=== PATIENT | male | born 1950 | race Caucasian/White ===

== ENCOUNTER → 2016-10-29 | Outpatient (CLI) | payer BC ==
[~2016-10-29] MED LIST: ALLEGRA180 MG PO; ALLOPURINOL 30300 M3 PO; APAP650 PO; ASPIRIN EC81 M1 PO; AZELAST NASAL137 MC1 NASAL; BISACODYL SUPP10 MG RECTAL; BYSTOLIC10 MG PO; CHLORTHALIDONE25 MG PO; COLACE 100 MG100 MG PO; DIPHENHYDRAMINE25 M3 PO; ELIQUIS5 MG PO; ETODOLAC500 MG PO; FLONASE 0.05%50 MCG NASAL; HYDROXYZINE HCL25 M1 PO; LESCOL XL80 MG PO; LODINE 200MG C200 M1 PO; LORTAB 7.5/5001 TA3 PO; METOCLOPRAMIDE 55 M1 PO; MOM PO; NASONEX17 GM NASAL; NASONEX17 GM NS; POTASSIUM99 M1 PO; PRILOSEC 20 MG20 MG PO; PRILOSEC20 MG PO; TEKTURNA300 MG PO; VERAPAMIL E.R240 M1 PO; VIIBRYD40 MG PO; XANAX 0.5 MG0.5 M1 PO; ZETIA10 MG PO
--- NOTE | ~2016-10-29 | 24HR ---
[address] [address] 24 HR ELECTROCARDIOGRAM REPORT Name: BRENTON MUNOZ Room #: REG [facility]#: [id number] Admission: 10/29/16 Attend Phys: Gautam Mills, Discharge: Date of : 52 Date of Service: 10/29/161126 Report #: [id number] THIS REPORT FOR: //name// [facility] Test Date: 2016-10-29 Test Time: 11:27:00 Pat Name: BRENTON MUNOZ Department: Room: Gender: Component Technician: : 1950 Requested By: Gautam Mills Order Number: [id number] Parviz SALAS: Interpretive Statements [email or web address] By: 26 26 Epiphany MD Geo /EPI
== END ==
LOC: CV 09:41
DX: I48.91 Unspecified atrial fibrillation (principal)

== ENCOUNTER → 2017-01-07 | Outpatient (CLI) | payer BC ==
[~2017-01-07] VITALS: Ht 165.1 cm; Wt 89.4 kg
[~2017-01-07] MED LIST changes: +BYSTOLIC 5 MG5 M1 PO; +FLOMAX0.4 MG PO; +TRAMADOL 50 MG50 MG PO
--- NOTE | ~2017-01-07 | HPC ---
[facility] [place] [address] PAIN MANAGEMENT CONSULTATION Name: BRENTON MUNOZ JAMAL STORY [facility] [id number] Admission: 01/07/17 Attend Phys: Patrick Cordero DO Discharge: Date of : 52 Report #: [id number] THIS REPORT FOR: //name// CC: Lenin Cordero The patient is a 66-year-old gentleman seen about a year and a half ago for symptomatic lumbar radiculopathy, was treated in April 2015, had an epidural injection then and again 06/06/2015 and 07/07/2015, with excellent improvement of radicular symptoms, somewhat lost to follow up. He presents to pain clinic today for a new complaint. He notes he has had pain in the neck, right shoulder and arm, which has been present for greater than 6 weeks; past 2 weeks, he has had a burning, numbness. He rates it an 8 on a VAS. He notes it is exacerbated with activity, some relief with repositioning. Review of systems was accomplished and medications were reconciled. Still takes tamsulosin for benign prostatic hypertrophy, hypertension treated with Bystolic and verapamil. He has been on Eliquis for some time, but the last dose was on 01/01/2017, in anticipation of an injection today. He uses omeprazole for gastroesophageal reflux and Zetia for dyslipidemia, tramadol and Tylenol for pain. PHYSICAL EXAMINATION: Shows a 66-year-old gentleman, BMI is kg/m2. Blood pressure is quite elevated today 150/101, pulse 110, and respirations 16. The patient relates hypertension, specifically to his current pain. Cervical range of motion shows grossly positive Lhermitte's with pain going into the right neck and shoulder. Right brachioradialis reflex is absent, it is 1/4 in the left. Biceps and triceps reflexes are symmetric. Unable to take anti-inflammatory medications due to coronary artery disease and concurrent Eliquis use. There are no recent diagnostic studies available for evaluation at this time, but symptoms are classic for cervical radiculopathy, right C6-C7. RECOMMENDATIONS: 1. Cervical epidural injection under fluoroscopy today. 2. Resume Eliquis tomorrow. 3. Continue range of motion and activity as tolerated. Follow up in 3 weeks to evaluate efficacy of interventional therapy. 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 Cervical epidural injection under fluoroscopy today, again resume Eliquis, followup after his renal surgery for further evaluation. PROCEDURE: Cervical epidural injection under fluoroscopy. [address] [address] PAIN MANAGEMENT CONSULTATION Name: BRENTON MUNOZ Room #: REG [facility]#: [id number] Admission: 01/07/17 Attend Phys: Patrick Cordero DO Discharge: Date of : 52 Report #: [id number] PROCEDURE NOTE: After written and informed consent was obtained including risk of dural puncture, spinal cord trauma, paralysis and increased pain, the patient was taken to the fluoroscopy suite and placed in the prone position, with appropriate abdominal bolstering, neck was flexed, palms under the thighs. Skin was prepped with ChloraPrep. Sterile draping was applied. Skin wheal with 1% Xylocaine was raised. A 22-gauge 3-1/2 inch epidural Tuohy needle was placed via a midline approach at the C7-T1 interspace, advanced under biplanar fluoroscopy using continuous loss of resistance. With appropriate loss of resistance at the expected depth on lateral view, the glass loss of resistance syringe was disconnected. A low volume extension tubing was connected to the needle and a 5 mL syringe. Negative aspiration for cerebrospinal fluid or blood was noted. One mL of Omnipaque was injected which showed spread within the epidural space on biplanar fluoroscopy. This was followed with 80 mg of triamcinolone plus 1 mL of 1.5% preservative Xylocaine. Needle was withdrawn to the interspinous ligament, 0.5 mL of Xylocaine was used to flush the needle. The needle was then completely withdrawn. The area was cleansed. Band-Aid was applied. The patient was allowed to move off the procedure table and ambulated to the recovery room, monitored for an appropriate period of time, discharged in good and stable condition. By: [id number] 1950 Patrick Cordero DO /nt
[2017-01-07 12:44] VITALS: BP 150/101
== END | disposition home or self-care (01) ==
LOC: PAIN 07:20
DX: M54.12 Radiculopathy, cervical region (principal); I10 Essential (primary) hypertension; E78.5 Hyperlipidemia, unspecified; N40.0 Benign prostatic hyperplasia without lower urinary tract symptoms; K21.9 Gastro-esophageal reflux disease without esophagitis; Z98.890 Other specified postprocedural states; Z79.899 Other long term (current) drug therapy

== ENCOUNTER → 2020-09-28 | Outpatient (CLI) | payer OTHER ==
[~2020-09-28] VITALS: Ht 15.2 cm; Wt 97.5 kg
[~2020-09-28] MED LIST changes: +CARVEDILOL25 MG PO; +GLIPIZIDE5 MG PO; +LEXAPRO 10 MG T10 M2 PO; +MEDROLDOSEPACK PO; +PRAMIPEXOLE D0.25 MG PO; +RAYOS5 MG PO; +TART CHERRY CA1 EACH PO; +VALSARTAN320 MG PO
[2020-09-28 09:03] VITALS: BP 123/82
--- NOTE | 2020-09-28 09:22 | NUR ---
Pain Clinic Assessment: 1. History of Osteoarthritis: HANDS FEET KNEES History of Rheumatoid Arthritis: DENIES 2. Height: 5 ft. 6 in. 15.2 cm. Weight: 215.0 lb. oz. 97.524 kg. Patient's BMI: 4221.1 3. Vital Signs: BP: 123/82 Pulse: 75 Resp: 16 Temp: 02 Sat: 98 ECG Mon: 4. Pain Intensity: 6 TO 10 5. Fall Risk: Dizziness: N Needs help standing or walking: N Fallen in the last 3 months: N Fall risk comments: 6. Patient on Blood Thinner: Y 7. History of Hypertension: Y 8. Opioid Therapy greater than 6 weeks: N Opiate Contract Signed: 9. Risk Assessment Tool Provided: LOW-1 10. Functional Assessment Tool: 51/ 11. Recreational Drug Use: Never Drug Type: Tobacco Use: Current Every Day Smoker Tobacco Type: Pipe Tobacco Amount or Packs/day: How Many Years: Alcohol Use: Yes Frequency: Daily Quant: 1
--- NOTE | 2020-10-19 08:22 | HPC ---
[facility] [place] [address] PAIN MANAGEMENT CONSULTATION Name: BRENTON MUNOZ JR Room #: REG [facility].#: [id number] Admission: 09/28/20 Attend Phys: Serg Cordero DO Discharge: Date of : 51 Report #: [id number] THIS REPORT FOR: cc: Lenin Trinh II, MD, II,Serg Hoyos MD, DO ~ DOC #: [id number] cc: MD Serg Slater DO DATE OF SERVICE: 09/28/2020 CHIEF COMPLAINT: Chronic right low back pain. HISTORY OF PRESENT ILLNESS: As you know, the patient is a 70-year-old male with a history of chronic right low back pain, referred back to our clinic by his primary care physician to discuss whether or not interventional treatments would be beneficial. The patient reports his pain has been present for years. He describes the pain more as a lumbar and right rib issues. He states the pain is constant, burning, stabbing and sharp, rating pain anywhere from 6-10/10. Denying any type of injury. He has had no treatment for this issue. It was exacerbated 05/27/2020. It looks as though he had symptoms in the past about a year ago, treated with some dry needling and physical therapy with complete resolution of symptoms. He complains of generalized body pains and joint pain consistent with his disease processes. He has been referred to our service to discuss whether or not interventional treatments would be beneficial. The patient reports today his pain is continuous. He describes the pain as burning, sharp and stabbing, places current pain score at 6/10, daily average is 6/10, worst pain is 10/10. The patient indicates pain is exacerbated with movement of any sort and improves with being immobile. He has been referred to our service to discuss treatment options. There are no studies of any type to evaluate the thoracic spine with the patient today. PAST MEDICAL HISTORY: 1. Scarlet fever. 2. Diabetes. 3. Hypertension. 4. Coronary artery disease. 5. Kidney disease. 6. Degenerative joint disease. 7. Osteoarthritis. 8. History of cancer. SOCIAL HISTORY: The patient denies tobacco use. Denies IV or illicit drug use. Admits to 1 alcohol beverage per day. He is retired, retired about 6 years ago. He is not receiving workmen's compensation nor is [place] [address] PAIN MANAGEMENT CONSULTATION Name: TAMMYBRENTONBRYCE BERRY Room #: REG CLI [facility]#: [id number] Admission: 09/28/20 Attend Phys: Serg Cordero DO Discharge: Date of : 52 Report #: [id number] disability benefits. He is not in litigation in regards to pain. He is unaccompanied at today's visit. REVIEW OF SYSTEMS: Positive for weight gain, fatigue, wearing corrective eyewear, heart trouble, palpitations, frequent urination, nocturia, kidney stones, sexual difficulty, lightheadedness, dizziness, depression, non-insulin dependent diabetes. All other review of systems negative per 12-point review of systems other than those listed in history of present illness. Pain impact score 5170, severe interference of daily activities secondary to pain. ALLERGIES: No known drug allergies. CURRENT MEDICATIONS: Glipizide 5 mg once a day, pramipexole 0.25 mg p.o. at bedtime, valsartan 320 mg once a day, citalopram 10 mg per day, carvedilol 25 mg b.i.d., vitamin supplementation 1 tab per day, tramadol 50 mg q.6 hours p.r.n. pain, Tamsulosin 0.4 mg p.o. at bedtime, Bystolic 5 mg once a day, Tylenol Arthritis 650 mg b.i.d., Eliquis 5 mg once a day, Nasonex one spray each nostril per day, omeprazole 20 mg per day, fexofenadine 180 mg per day, chlorthalidone 25 mg per day, verapamil ER 240 mg b.i.d., Astelin 137 mcg inhaled twice a day, Lescol 80 mg once a day, Zetia 10 mg once a day. IMAGING: No imaging available. PQRS: The patient has known arthritic changes of the bilateral hands, feet and knees. No rheumatoid arthritis, placing pain anywhere from 6-10/10. He is not a fall risk, has not had a fall in last 3 months. He is on blood thinners in the form of Eliquis and has continued the medication. He is treated for hypertension. He is not on chronic opioids, has a low opiate addiction potential. Pain impact is 5170. Severe interference of daily activities secondary to pain. PHYSICAL EXAMINATION: VITAL SIGNS: Blood pressure 123/82, pulse 75, respiratory rate 16 and unlabored. The patient 98% on room air. Height 5 feet 6 inches tall, weight 215 pounds. GENERAL: Well-developed, well-nourished, well-hydrated 70-year-old male, appearing his stated age, in no acute distress. Awake, alert and oriented x3. Current pain score is rated at 6-10/10. HEENT: Normocephalic, atraumatic. Pupils are round and responsive. The patient is wearing a mask in compliance with COVID-19 regulations. LUNGS: Clear. No wheeze, rhonchi or rales. CARDIOVASCULAR: Regular. No appreciable gallop, no rub. ABDOMEN: Soft, mildly obese. EXTREMITIES: Show no clubbing, no cyanosis and no edema. [facility] [address] [place] [address] PAIN MANAGEMENT CONSULTATION Name: TAMMYBRENTON JAMAL STORY Room #: REG [facility] Zainab#: [id number] Admission: 09/28/20 Attend Phys: Serg Cordero DO Discharge: Date of : 52 Report #: [id number] MUSCULOSKELETAL: There is some palpatory tenderness noted over the upper lumbar, lower thoracic area along the false ribs. There does not appear to be any skin color changes concerning of zoster. There is no radicular component to the patient's pain elicited with maneuvers. Upper extremity strength, lower extremity strength equal and symmetrical. ASSESSMENT: 1. Right lower thoracic pain. 2. Myofascial pain. 3. Chronic intractable pain. PLAN: 1. Based on today's physical exam, the history the patient has provided, the description the patient uses in regards to the pain as well as the alleviation of symptoms with some dry needling and physical therapy, the likely source of the patient's pain is myofascial in origin. I do not have any imaging of the thoracic spine available to determine whether or not pathology exists that would be amenable to an injection. There is also some concern that the patient may have had a vertebral compression fracture in the past that may be what is exacerbating his current symptoms due to mechanical changes of the thoracic area. I would recommend imaging of the thoracic spine to be obtained. Initially, we will send the patient for thoracic x-ray imaging. If this is not sufficient to show the potential pain generator, I would recommend that the patient discuss with his PCP undergoing thoracic MRI. We will review the x-ray imaging once it is available. 2. The patient was provided a prescription for Medrol Dosepak. This should help with his inflammatory processes. He is to take the pack as directed. I am hopeful this will provide the patient with good benefit. We will discuss efficacy at followup visit. 3. Recommend strongly the patient follow up with his physical therapist to undergo dry needling and physical therapy to address the area which appears to be more myofascial in origin. The patient may need to discuss coming off the Eliquis for the dry needling technique as bruising would be fairly significant. 4. We plan to see the patient back in followup visit in approximately 2 weeks. At that time, review the efficacy of medication management and review the x-ray imaging. We will keep you apprised of his response to treatment. 5. We wish to thank Dr. Trinh for the referral of the patient to our clinic. We will keep you apprised of his response to treatment as we address right lower thoracic upper lumbar pain. Again, we wish to thank you for the opportunity to see the patient in consultation. DO AMRIT Moore/ALDO [address] [address] PAIN MANAGEMENT CONSULTATION Name: BRENTON MUNOZ JR Room #: REG CLI Z[facility]#: [id number] Admission: 09/28/20 Attend Phys: Serg Cordero DO Discharge: Date of : 52 Report #: [id number] <ELECTRONICALLY SIGNED> By: Serg Cordero DO 10/19/20 0822 1150 [id number] Serg Cordero DO /
== END ==
LOC: PAIN 07:55
PROVIDERS: ATTEND Anesthesiology Pain Medicine
DX: M47.814 Spondylosis without myelopathy or radiculopathy, thoracic region (principal); M79.18 Myalgia, other site; I10 Essential (primary) hypertension; E11.9 Type 2 diabetes mellitus without complications; M19.90 Unspecified osteoarthritis, unspecified site; G89.29 Other chronic pain; M54.5 Low back pain

== ENCOUNTER → 2020-11-01 | Outpatient (CLI) | payer OTHER ==
[~2020-11-01] VITALS: Ht 167.6 cm; Wt 100.5 kg
[2020-11-01 10:02] VITALS: BP 171/94
--- NOTE | 2020-11-01 10:15 | NUR ---
Pain Clinic Assessment: 1. History of Osteoarthritis: HANDS FEET KNEES History of Rheumatoid Arthritis: DENIES 2. Height: 5 ft. 6 in. 167.6 cm. Weight: 221.6 lb. oz. 100.517 kg. Patient's BMI: 35.8 3. Vital Signs: BP: 171/94 Pulse: 73 Resp: 18 Temp: 02 Sat: 97 ECG Mon: 4. Pain Intensity: 3 5. Fall Risk: Dizziness: N Needs help standing or walking: N Fallen in the last 3 months: N Fall risk comments: 6. Patient on Blood Thinner: Y 7. History of Hypertension: Y 8. Opioid Therapy greater than 6 weeks: N Opiate Contract Signed: 9. Risk Assessment Tool Provided: LOW-1 10. Functional Assessment Tool: 11. Recreational Drug Use: Never Drug Type: Tobacco Use: Current Every Day Smoker Tobacco Type: Pipe Tobacco Amount or Packs/day: How Many Years: 1 Alcohol Use: Yes Frequency: Daily Quant: 1
--- NOTE | 2020-11-08 09:33 | HPC ---
[facility] [place] [address] PAIN MANAGEMENT CONSULTATION Name: BRENTON MUNOZ Room #: REG [facility].#: [id number] Admission: 11/01/20 Attend Phys: Serg Cordero DO Discharge: Date of : 52 Report #: [id number] THIS REPORT FOR: cc: Lenin Trinh II, MD, II,Serg Hoyos MD, DO ~ DOC #: [id number] cc: Lenin Cordero DO DATE OF SERVICE: 11/01/2020 CHIEF COMPLAINT: Low back pain, chronic right mid back pain. HISTORY OF PRESENT ILLNESS: As you know, the patient is a 70-year-old male with longstanding history of right low back pain, right lower thoracic pain referred to our clinic by primary care physician for interventional treatments. The patient was seen in our clinic per Dr. Trinh's request 09/28/2020. It was determined the patient was suffering from myofascial symptoms and treated conservatively. He has had a 50% reduction in overall pain with the adjustments made in medication management last visit. He returns today in followup visit complaining of continued low back pain. As you are aware, the patient has submitted to 2 different back surgeries, but he is unaware of the areas of the back surgery that were addressed. He states he has not had any new imaging of his lumbar spine since 2017. He has had pain in this area prior to that time. He returns today in followup visit to discuss treatment options. He is placing current pain score no greater than 3/10. He denies new injury or trauma or any changes in medication management since our last visit. ALLERGIES: No known drug allergies. CURRENT MEDICATIONS: Glipizide, pramipexole, valsartan, escitalopram, carvedilol, vitamin C, tramadol, ____, acetaminophen, Eliquis, omeprazole, fexofenadine, chlorthalidone, Astelin, fluoxetine and Zetia. SOCIAL HISTORY: The patient denies tobacco use. Denies IV or illicit drug use. Admits to 1 alcohol beverage per day. He is retired about 6 years ago, unaccompanied. IMAGING: No imaging available to us. PQRS: The patient has known arthritic changes of bilateral hands, feet and knees. No rheumatoid arthritis. Placing pain score no greater than 3/10, not a fall risk, has not had a fall in last 3 months. He is on blood thinners and continues on his Eliquis. He is treated for hypertension. He is not on chronic opioids, has a low opiate addiction potential. Pain impact is 51/70. Severe interference of daily activities secondary to pain. [address] [address] PAIN MANAGEMENT CONSULTATION Name: BRENTON MUNOZ Room #: REG [facility]#: [id number] Admission: 11/01/20 Attend Phys: Serg Cordero DO Discharge: Date of : 52 Report #: [id number] PHYSICAL EXAMINATION: VITAL SIGNS: Blood pressure 171/94, pulse 73, respiratory rate 18 and unlabored. The patient 97% on room air. Height 5 feet 6 inches tall, weight 221.6 pounds, BMI calculated 35.8. GENERAL: Well-developed, well-nourished, well-hydrated exogenously obese 70-year-old male, appearing stated age, pain is rated around 3/10. HEENT: Normocephalic, atraumatic. Pupils equal, round and responsive. EXTREMITIES: Show no clubbing, no cyanosis. No appreciable edema. MUSCULOSKELETAL: Seated straight leg raising negative. Supine straight leg raising negative. Fabere's test is negative. Modified Gaenslen's positive for axial back pain. There is some palpatory tenderness over the paraspinal musculature of lower lumbar spine and lower thoracic spine consistent with myofascial pain. ASSESSMENT: 1. Right lower thoracic pain. 2. Chronic right low back pain. 3. Myofascial pain. 4. Chronic intractable pain. PLAN: 1. The patient returns today in followup visit where we have discussed improvement in his symptoms of 50% with the adjustments in medication management made last visit. He continues to experience chronic axial low back pain, but there does not appear to be any radiation of symptoms. The patient indicates that this has been present for years. He states he has imaging from 2017, which is the last time he underwent imaging studies. We will attempt to obtain that imaging study, though this information will be 4 years out of date and will likely need new imaging if symptoms are not correlating to the findings of 2017 imaging study. We will begin the process of trying to obtain those imaging studies as quickly as possible. We will review them once they are available. 2. The patient will be established an appointment next week to undergo a lumbar epidural injection to address his axial low back pain symptoms. We have established that appointment so that the patient will be able to come off his Eliquis and we will have a time to review the 4-year-old imaging study we are going to try to obtain. If a direction change is made based on the imaging study and his physical exam at our next visit, we will keep you apprised. He will be coming off his Eliquis 3 days prior to that appointment to undergo an interventional treatment to address axial back pain. 3. The patient's blood pressure is noted to be elevated. He will need to return to see Dr. Trinh to obtain adjustments in medication management to correct for his essential hypertension. The blood pressure change today does not correlate to chronic pain issues. We will defer to Dr. Trinh for adjustments in the patient's antihypertensive treatment. 4. We plan to see the patient back in followup visit next week for possible [address] [address] PAIN MANAGEMENT CONSULTATION Name: BRENTON MUNOZ [facility] #: [facility] [id number] Admission: 11/01/20 Attend Phys: Serg Cordero DO Discharge: Date of : 52 Report #: [id number] interventional treatment. By that time, we will have obtained his MRI imaging from 2016. We will also attempt to obtain information in regards to the operations he has received in the lumbar spine. The patient is unaware of the levels of the operations and this will help us further direct his treatment course. We will obtain the information from Dr. Morris's office in regards to surgical options. We will be obtaining the imaging study from [facility]. We will see him back in 1 week. Serg Cordero DO JEJ/KDA <ELECTRONICALLY SIGNED> By: Serg Cordero DO 11/08/20 0933 0638 2 Serg Cordero DO /nt
== END ==
LOC: PAIN 10-19 10:35
PROVIDERS: ATTEND Anesthesiology Pain Medicine
DX: M54.6 Pain in thoracic spine (principal); M54.5 Low back pain; G89.4 Chronic pain syndrome; Z79.891 Long term (current) use of opiate analgesic; Z79.899 Other long term (current) drug therapy

== ENCOUNTER → 2020-11-15 | Outpatient (CLI) | payer OTHER ==
[~2020-11-15] VITALS: Ht 167.6 cm; Wt 101.1 kg
[2020-11-15 09:40] VITALS: BP 142/92
--- NOTE | 2020-11-18 12:39 | HPC ---
[place] [address] PAIN MANAGEMENT CONSULTATION Name: BRENTON MUNOZ Room #: REG [facility].#: [id number] Admission: 11/15/20 Attend Phys: Serg Cordero DO Discharge: Date of : 52 Report #: [id number] THIS REPORT FOR: cc: Lenin Trinh II, MD, II,Serg oHyos MD, DO ~ DOC #: [id number] cc: Lenin Cordero DO DATE OF SERVICE: 11/15/2020 CHIEF COMPLAINT: Low back pain. HISTORY OF PRESENT ILLNESS: As you know, the patient is a 70-year-old male with longstanding history of low back pain, right lower thoracic pain referred to our clinic by his primary care physician to discuss interventional treatment options. The patient was seen in consultation 09/28/2020 for his right thoracic pain. He was started on medication management. He followed up with our clinic on 11/01/2020 complaining of more low back pain, right-sided. We made today's appointment for the patient to undergo lumbar epidural injection under fluoroscopic guidance. He returns today in followup visit reporting a pain score of 6/10. He has discontinued his Eliquis in preparation for the lumbar epidural injection proposed. He denies injury or trauma that may have led to symptom development. As you are aware, the patient has undergone extensive surgery of the lumbar region with laminectomies at multiple levels. He returns today in followup visit for the first in a series of lumbar epidural injections. ALLERGIES: No known drug allergies. CURRENT MEDICATIONS: See chart. SOCIAL HISTORY: The patient denies tobacco. Denies IV or illicit drug use. Admits to 1 alcohol beverage per day. He retired about 6 years ago, unaccompanied today. IMAGING: No imaging available. PQRS: The patient has known arthritic changes of the bilateral hands, feet, knees and lumbar spine. No rheumatoid arthritis. He is placing current pain score at 6/10. No fall risk. Has not had a fall in last 3 months. He is on blood thinner in the form of Eliquis, but discontinued the medication 3 days ago. He is treated for hypertension. He is not on chronic opioids, has a low opiate addiction potential. Pain impact 51/70, severe interference of daily activities secondary to pain. PHYSICAL EXAMINATION: [address] [place] [address] PAIN MANAGEMENT CONSULTATION Name: SHANGILMARBRENTONBRYCE BERRY [id number] Admission: 11/15/20 Attend Phys: Serg Cordero DO Discharge: Date of : 52 Report #: [id number] VITAL SIGNS: Blood pressure 142/92, pulse 82, respiratory rate 20, unlabored. The patient 98% on room air. Height 5 feet 6 inches tall, weight 222.8 pounds, BMI calculated 36.0. GENERAL: Well-developed, well-nourished, well-hydrated exogenously obese 70-year-old male, appearing stated age, pain is rated today at a 6/10. HEENT: Normocephalic, atraumatic. Pupils are round and responsive. Speech is fluent. He is wearing a mask in compliance with COVID-19 regulations. EXTREMITIES: Show no clubbing, no cyanosis and no edema. MUSCULOSKELETAL: Seated straight leg raising negative. Supine straight leg raising is negative, though there is generation of right buttock pain with standing from a seated position. Fabere's test is negative. Modified Gaenslen's positive for axial back pain. Well healed surgical scar over the lumbar spine. ASSESSMENT: 1. Lumbar radicular symptoms involving the right lower extremity. 2. Chronic low back pain. 3. Myofascial pain. 4. Chronic intractable pain. PLAN: 1. The patient returns today in followup visit to undergo lumbar epidural injection under fluoroscopic guidance to address mainly his low back and right lower extremity pain. The patient has had extensive surgery of the lumbar spine addressing the L3-L4, L4-L5 levels based on the patient's report with laminectomies. Unfortunately, he continues to experience radicular symptoms, which appears to be related to the L5-S1 level given the distribution. He returns today having discontinued his Eliquis 3 days prior to today's procedure. He has been advised the risks and benefits of a lumbar epidural injection. These risks include but are not necessarily limited to bleeding, bruising, infection, worsening pain, no relief of pain, also risk of temporary or permanent, muscle weakness, temporary or permanent nerve damage, possible paralysis, and . The patient states understood and wished to proceed. 2. The patient will restart his Eliquis today and continue the Eliquis as directed twice a day. He will continue the medication until our next appointment. If it was determined that the patient would need another injection. We will have him come off the Eliquis 3 days prior to that procedure. 3. We made no changes in medication management this visit. The patient will continue current medical therapy as prior prescribed. 4. We will see the patient back for a followup visit for the next in the series of lumbar epidural injections. We are hopeful the patient will see good and prolong benefit with today's procedure. PROCEDURE NOTE [address] [address] PAIN MANAGEMENT CONSULTATION Name: BRENTON MUNOZ JR Room #: REG [facility]#: [id number] Admission: 11/15/20 Attend Phys: Serg Cordero DO Discharge: Date of : 52 Report #: [id number] DESCRIPTION OF PROCEDURE: L5-S1 right paramedian epidural steroid injection under fluoroscopic guidance. This is the first procedure of the first series that the patient is undergoing. After obtaining written consent, the patient was taken back to the fluoroscopy suite, placed in a prone position with pillow under the abdomen to decrease lumbar lordosis. The skin overlying the lumbosacral area was then prepped and draped in aseptic fashion. The L5-S1 vertebral interspace was then identified by AP fluoroscopy. The skin and subcutaneous tissue overlying the target site of injection was anesthetized with 3 ml 1% lidocaine. A 20-gauge 3-1/2 inch Tuohy needle was then advanced under fluoroscopic guidance towards the epidural space using a right paramedian approach. The epidural space was identified using loss of resistance to air technique. After negative aspiration for heme or cerebrospinal fluid, a total of 0.5 ml of omnipaque was injected. A lumbar epidurogram was confirmed using both AP and lateral fluoroscopy. After negative aspiration for heme or cerebrospinal fluid, 4 ml of solution containing 2 ml 40 mg per ml 80 mg total triamcinolone, 2 ml of lidocaine 1% was injected in increments. Contrast spread was noted in post-epidural space. The needle was then retracted approximately half way and needle tract flushed with 1 ml of 1% lidocaine. Needle was then removed. There were no apparent sensory or motor deficits in the lower extremity following the procedure. A sterile bandage was placed over the injection site. The heart rate, pulse, oximetry and blood pressure were continuously monitored after the procedure. There were no apparent complications. The patient tolerated the procedure well and was carefully escorted to the recovery room in stable condition. There were no apparent complications. After meeting discharge criteria, the patient was then discharged home. Serg Cordero DO JEJ/BENITO <ELECTRONICALLY SIGNED> By: Serg Cordero DO 11/18/20 [id number] Serg Cordero DO /nt
== END | disposition home or self-care (01) ==
LOC: PAIN 11-08 09:20
PROVIDERS: ATTEND Anesthesiology Pain Medicine
DX: M54.16 Radiculopathy, lumbar region (principal); G89.29 Other chronic pain; M54.5 Low back pain; M79.18 Myalgia, other site; I10 Essential (primary) hypertension; M19.90 Unspecified osteoarthritis, unspecified site; Z98.890 Other specified postprocedural states; Z79.899 Other long term (current) drug therapy; Z79.01 Long term (current) use of anticoagulants; Z87.891 Personal history of nicotine dependence